=== PATIENT | male | born 1955 | race African-American/Black ===

== ENCOUNTER 2018-01-19 09:09 | Outpatient (CLI) | payer MEDICARE ==
--- NOTE | 2018-01-19 12:20 | RAD ---
SIX VIEWS LUMBAR SPINE: HISTORY: Left leg, heel, and ankle pain for 1-1/2 to 2 years. Previous back injury. Previous back surgery. COMPARISON: None. FINDINGS: AP, left oblique, right oblique, lateral neutral, lateral extension, and lateral flexion views of the lumbar spine demonstrate five lumbar type vertebral bodies. Vertebral body height is maintained. T here is no fracture. There is mild loss of disk space height and osteophyte formation at L3-L4 and a t L4-L5. In the neutral position, there is no malalignment. No abnormal motion upon extension or fl exion. IMPRESSION: 1. Degenerative changes of the lumbar spine as above. 2. No significant spondylolisthesis. POS: ODILON
== END 2018-01-19 09:10 | disposition home or self-care (01) ==
LOC: SCSMRI 09:09
PROVIDERS: ATTEND Neurological Surgery
DX: M47.26 Other spondylosis with radiculopathy, lumbar region (principal)
CPT/HCPCS: 72100

== ENCOUNTER 2022-01-22 09:10 | Outpatient (CLI) | payer MEDICARE ==
[2022-01-22 20:07] LABS: SARS-CoV-2 PCR by NAA Not Detected (NotDetected)
== END 2022-01-22 09:11 | disposition home or self-care (01) ==
LOC: LABBT 09:10
PROVIDERS: ATTEND Orthopaedic Surgery
DX: Z20.822 Contact with and (suspected) exposure to COVID-19 (principal)
CPT/HCPCS: U0003; U0005

== ENCOUNTER 2023-06-08 11:13 | Outpatient (CLI) | payer MEDICARE, OTHER ==
[2023-06-08 14:31] LABS: Hematocrit 37.9 % (38.8-50.0); Hemoglobin 12.4 g/dL (13.5-17.5); Mean Corpuscular HGB CONC 32.7 g/dL (32.0-36.0); Mean Corpuscular Hemoglobin 31.6 pg (27.0-33.0); Mean Corpuscular Volume 96.7 fl (81.2-95.1); Mean Platelet Volume 9.4 fl (7.4-10.4); Platelet Count 369 10x3/uL (130-400); RBC Distribution Width 12.7 % (11.5-14.5); Red Blood Cell (RBC) Count 3.92 10x6/uL (4.32-5.72); White Blood Cell (WBC) Count 5.6 10x3/uL (3.5-10.5)
[2023-06-08 14:32] LABS: #Eosinphils 0.1 10x3/uL (0.0-0.5); #Monocytes 0.4 10x3/uL (0.0-1.1); #Neutrophils 3.1 10x3/uL (1.5-8.4); %Basophils 0.2 % (0.0-2.0); %Eosinophils 1.6 % (0.0-6.0); %Lymphocytes 35.8 % (18.0-47.0); %Neutrophils 55.2 % (40.0-75.0)
== END 2023-06-08 11:14 | disposition home or self-care (01) ==
LOC: LABBT 11:13
PROVIDERS: ATTEND Orthopaedic Surgery Hand Surgery
DX: Z01.812 Encounter for preprocedural laboratory examination (principal); G56.01 Carpal tunnel syndrome, right upper limb
CPT/HCPCS: 85025

== ENCOUNTER 2023-06-15 08:34 | Day surgery (SDC) | payer MEDICARE ==
[2023-06-11 10:33] VITALS: BMI 41.4
[2023-06-15] MEDS ORDERED: Bacitracin Zinc Ointment 30 gm TUBE ONE (08:55)
[2023-06-15] MEDS ORDERED: Bupivacaine PF 0.5% 30 ML VIAL ONE (09:29)
[2023-06-15] MEDS ORDERED: CEFAZOLIN 2 GM VIAL ONE (09:54)
[2023-06-15] MEDS ORDERED: Sodium Chloride 0.9% 100 ML ONE (09:54)
[2023-06-15] MEDS ORDERED: Lidocaine 1% PF 5 ML VIAL ONE (10:06)
[2023-06-15] MEDS ORDERED: PROPOFOL 200 MG/20 ML VIAL ONE (10:06)
[2023-06-15] MEDS ORDERED: Glycopyrrolate 0.2 MG/ML 5 ML SYRINGE ONE (10:06)
[2023-06-15] MEDS ORDERED: Ketorolac Tromethamine 30 MG/ML VIAL ONE (11:08)
== END 2023-06-15 12:45 | disposition home or self-care (01) ==
LOC: SDC 08:34
PROVIDERS: ATTEND Orthopaedic Surgery Hand Surgery
PROC: 01N50ZZ Release Median Nerve, Open Approach (ICD-10-PCS; principal; 2023-06-15)
DX: G56.01 Carpal tunnel syndrome, right upper limb (principal); E11.9 Type 2 diabetes mellitus without complications; I25.10 Atherosclerotic heart disease of native coronary artery without angina pectoris; I25.2 Old myocardial infarction; I11.0 Hypertensive heart disease with heart failure; I50.9 Heart failure, unspecified; K21.9 Gastro-esophageal reflux disease without esophagitis; Z87.891 Personal history of nicotine dependence; Z79.899 Other long term (current) drug therapy; Z79.82 Long term (current) use of aspirin; Z79.84 Long term (current) use of oral hypoglycemic drugs
CPT/HCPCS: J1885; J2704; J3490; S0020